=== PATIENT | female | born 1965 | race Hispanic/Latino ===

== ENCOUNTER 2024-04-15 07:50 | Emergency (ER) | payer OTHER ==
[~2024-04-15] VITALS: Ht 157.5 cm; Wt 88.9 kg
[~2024-04-15 07:50] MED LIST: FERR-82 PO; FURO40TA5 PO; LACT10SO9 PO; PANT40TA54 PO
[2024-04-15 08:26] LABS: BASOPHILS # (AUTO) 0.04 K/uL (0.00-0.20); BASOPHILS % (AUTO) 1.2 % (0.0-5.0); EOSINOPHILS # (AUTO) 0.13 K/uL (0.00-0.70); EOSINOPHILS % (AUTO) 3.8 % (0.0-8.0); HEMATOCRIT 28.9 % (36-48); IMMATURE GRANULOCYTE ABSOLUTE 0.01 K/uL (0-1); LYMPHOCYTES # (AUTO) 1.1 K/uL (1.0-4.8); LYMPHOCYTES % (AUTO) 32.1 % (21.0-51.0); MEAN CORPUSCULAR HEMOGLOBIN 33.4 pg (27.0-33.0); MEAN CORPUSCULAR HGB CONC 34.9 g/dL (32.0-36.0); MEAN CORPUSCULAR VOLUME 95.7 fL (79-99); MONOCYTES # (AUTO) 0.4 K/uL (0.1-1.0); NEUTROPHILS # (AUTO) 1.7 K/uL (1.8-7.7); NEUTROPHILS % (AUTO) 50.6 % (40.0-77.0); PLATELET COUNT (AUTO) 108 K/uL (130-400); RED BLOOD CELL COUNT(AUTO) 3.02 MIL/uL (4.00-5.50); RED CELL DISTRIBUTION WIDTH 13.3 % (11.0-15.5); WHITE BLOOD COUNT (AUTO) 3.4 K/uL (4.8-10.8)
[2024-04-15 08:29] LABS: CREATININE 2.3 mg/dL (0.5-1.0); POTASSIUM 4.2 mmol/L (3.5-5.1)
[2024-04-15 08:32] LABS: INR 1.08 (0.85-1.15); PROTHROMBIN TIME 12.7 SEC (9.6-11.6)
[2024-04-15 08:34] LABS: PARTIAL THROMBOPLASTIN TIME 29.9 SEC (26.3-35.5)
[2024-04-15 08:35] LABS: ALBUMIN 2.5 g/dL (3.5-5.0); BILIRUBIN,TOTAL 1.3 mg/dL (0.2-1.0); TOTAL PROTEIN, SERUM 7.3 g/dL (6.0-8.3)
[2024-04-15 08:39] VITALS: RESP 14
[2024-04-15] MEDS ORDERED: ALBUMIN (HUMAN) 25% 200 ML IV ONE (09:16)
[2024-04-15 09:57] VITALS: BP 117/61; PULSE 77; O2SAT 100
== END 2024-04-15 10:40 | disposition home or self-care (01) ==
LOC: EDH 07:50
DX: R18.8 Other ascites (principal); K74.60 Unspecified cirrhosis of liver; D61.818 Other pancytopenia; I10 Essential (primary) hypertension; Z79.899 Other long term (current) drug therapy; Z90.710 Acquired absence of both cervix and uterus; Z98.890 Other specified postprocedural states
CPT/HCPCS: 49083; 99285; 96365; 80053; 85025; 85610; 85730; 36415; P9046; C1729

== ENCOUNTER 2024-04-26 08:10 | Emergency (ER) | payer MEDICAID, OTHER ==
[~2024-04-26] VITALS: Ht 167.6 cm; Wt 86.6 kg
[2024-04-26 08:11] VITALS: TEMP 97.8
[2024-04-26 08:53] LABS: BASOPHILS # (AUTO) 0.04 K/uL (0.00-0.20); BASOPHILS % (AUTO) 0.9 % (0.0-5.0); EOSINOPHILS # (AUTO) 0.15 K/uL (0.00-0.70); EOSINOPHILS % (AUTO) 3.4 % (0.0-8.0); HEMATOCRIT 28.1 % (36-48); IMMATURE GRANULOCYTE ABSOLUTE 0.01 K/uL (0-1); LYMPHOCYTES # (AUTO) 1.5 K/uL (1.0-4.8); LYMPHOCYTES % (AUTO) 33.1 % (21.0-51.0); MEAN CORPUSCULAR HEMOGLOBIN 33.7 pg (27.0-33.0); MEAN CORPUSCULAR HGB CONC 35.9 g/dL (32.0-36.0); MEAN CORPUSCULAR VOLUME 93.7 fL (79-99); MONOCYTES # (AUTO) 0.5 K/uL (0.1-1.0); MONOCYTES % (AUTO) 10.8 % (3.0-13.0); NEUTROPHILS # (AUTO) 2.3 K/uL (1.8-7.7); NEUTROPHILS % (AUTO) 51.6 % (40.0-77.0); PLATELET COUNT (AUTO) 107 K/uL (130-400); RED CELL DISTRIBUTION WIDTH 13.6 % (11.0-15.5); WHITE BLOOD COUNT (AUTO) 4.4 K/uL (4.8-10.8)
[2024-04-26 09:08] LABS: CREATININE 2.3 mg/dL (0.5-1.0); POTASSIUM 3.9 mmol/L (3.5-5.1)
[2024-04-26 09:18] LABS: INR 1.06 (0.85-1.15); PROTHROMBIN TIME 12.4 SEC (9.6-11.6)
[2024-04-26 09:19] LABS: PARTIAL THROMBOPLASTIN TIME 29.1 SEC (26.3-35.5)
[2024-04-26] MEDS: SODIUM BICARB 50MEQ 50ML VIAL 50 ML ONE (10:33)
[2024-04-26] MEDS: ALBUMIN (HUMAN) 25% 200 ML IV ONE (10:34)
[2024-04-26 11:09] VITALS: BP 117/55; PULSE 75; RESP 16; O2SAT 100
== END 2024-04-26 13:45 | disposition home or self-care (01) ==
LOC: EDH 08:10
DX: R18.8 Other ascites (principal); K74.60 Unspecified cirrhosis of liver; I10 Essential (primary) hypertension; Z79.899 Other long term (current) drug therapy; Z90.710 Acquired absence of both cervix and uterus
CPT/HCPCS: 49083; 99285; 96365; 80048; 85025; 85610; 85730; 36415; P9046; J3490; C1729

== ENCOUNTER 2024-05-21 07:14 | Emergency (ER) | payer BC, MEDICAID ==
[~2024-05-21] VITALS: Ht 165.1 cm; Wt 89.4 kg
[2024-05-21 08:16] LABS: BASOPHILS # (AUTO) 0.05 K/uL (0.00-0.20); BASOPHILS % (AUTO) 1.2 % (0.0-5.0); EOSINOPHILS # (AUTO) 0.31 K/uL (0.00-0.70); EOSINOPHILS % (AUTO) 7.3 % (0.0-8.0); HEMATOCRIT 27.3 % (36-48); IMMATURE GRANULOCYTE ABSOLUTE 0.01 K/uL (0-1); LYMPHOCYTES # (AUTO) 1.2 K/uL (1.0-4.8); LYMPHOCYTES % (AUTO) 29.3 % (21.0-51.0); MEAN CORPUSCULAR HEMOGLOBIN 32.1 pg (27.0-33.0); MEAN CORPUSCULAR HGB CONC 34.1 g/dL (32.0-36.0); MEAN CORPUSCULAR VOLUME 94.1 fL (79-99); MONOCYTES # (AUTO) 0.5 K/uL (0.1-1.0); MONOCYTES % (AUTO) 12.3 % (3.0-13.0); NEUTROPHILS # (AUTO) 2.1 K/uL (1.8-7.7); NEUTROPHILS % (AUTO) 49.7 % (40.0-77.0); PLATELET COUNT (AUTO) 96 K/uL (130-400); RED CELL DISTRIBUTION WIDTH 13.4 % (11.0-15.5); WHITE BLOOD COUNT (AUTO) 4.2 K/uL (4.8-10.8)
[2024-05-21 08:23] LABS: INR 1.13 (0.85-1.15); PROTHROMBIN TIME 12.1 SEC (9.6-11.6)
[2024-05-21 08:24] LABS: PARTIAL THROMBOPLASTIN TIME 28.8 SEC (26.3-35.5)
[2024-05-21 08:25] LABS: BILIRUBIN,TOTAL 0.9 mg/dL (0.2-1.0); POTASSIUM 5.3 mmol/L (3.5-5.1); TOTAL PROTEIN, SERUM 6.3 g/dL (6.0-8.3)
[2024-05-21] MEDS ORDERED: ALBUMIN (HUMAN) 25% 200 ML IV ONE (11:32)
[2024-05-21 13:32] VITALS: BP 95/52; PULSE 73; RESP 18; O2SAT 100
== END 2024-05-21 14:04 | disposition home or self-care (01) ==
LOC: EDH 07:14
DX: R18.8 Other ascites (principal); K74.60 Unspecified cirrhosis of liver; Z79.899 Other long term (current) drug therapy; Z90.710 Acquired absence of both cervix and uterus; Z98.890 Other specified postprocedural states
CPT/HCPCS: 49083; 99285; 96365; 80053; 85025; 85610; 85730; 36415; P9046; C1729

== ENCOUNTER 2024-06-09 08:28 | Inpatient (IN) | payer BC ==
[~2024-06-09] VITALS: Ht 162.6 cm; Wt 79.4 kg
[2024-06-09 09:00] LABS: BASOPHILS # (AUTO) 0.06 K/uL (0.00-0.20); BASOPHILS % (AUTO) 1.4 % (0.0-5.0); EOSINOPHILS % (AUTO) 7.1 % (0.0-8.0); HEMATOCRIT 28.1 % (36-48); IMMATURE GRANULOCYTE ABSOLUTE 0.01 K/uL (0-1); LYMPHOCYTES # (AUTO) 1.4 K/uL (1.0-4.8); LYMPHOCYTES % (AUTO) 32.9 % (21.0-51.0); MEAN CORPUSCULAR HEMOGLOBIN 32.4 pg (27.0-33.0); MEAN CORPUSCULAR HGB CONC 34.2 g/dL (32.0-36.0); MEAN CORPUSCULAR VOLUME 94.9 fL (79-99); MONOCYTES # (AUTO) 0.4 K/uL (0.1-1.0); MONOCYTES % (AUTO) 9.9 % (3.0-13.0); NEUTROPHILS # (AUTO) 2.1 K/uL (1.8-7.7); NEUTROPHILS % (AUTO) 48.5 % (40.0-77.0); PLATELET COUNT (AUTO) 111 K/uL (130-400); RED BLOOD CELL COUNT(AUTO) 2.96 MIL/uL (4.00-5.50); RED CELL DISTRIBUTION WIDTH 13.7 % (11.0-15.5); WHITE BLOOD COUNT (AUTO) 4.3 K/uL (4.8-10.8)
[2024-06-09 09:08] LABS: INR 1.13 (0.85-1.15); PROTHROMBIN TIME 12.1 SEC (9.6-11.6)
[2024-06-09 09:10] LABS: PARTIAL THROMBOPLASTIN TIME 28.8 SEC (26.3-35.5)
[2024-06-09 09:14] LABS: BILIRUBIN,TOTAL 1.1 mg/dL (0.2-1.0); CREATININE 2.3 mg/dL (0.5-1.0); POTASSIUM 5.3 mmol/L (3.5-5.1); TOTAL PROTEIN, SERUM 6.2 g/dL (6.0-8.3)
[2024-06-09 10:09] LABS: APPEARANCE,URINE CLEAR (CLEAR); BILIRUBIN,URINE NEGATIVE (NEGATIVE); COLOR,URINE YELLOW (YELLOW); GLUCOSE, URINE (UA) NEGATIVE (NEGATIVE); KETONES,URINE NEGATIVE (NEGATIVE); LEUKOCYTE ESTERASE ,URINE NEGATIVE Leu/uL (NEGATIVE); MUCUS,URINE RARE LPF (None Seen); NITRATE,URINE NEGATIVE (NEGATIVE); OCCULT BLOOD,URINE NEGATIVE (NEGATIVE); PH,URINE 5.5 (5.0-8.0); PROTEIN,URINE 10 mg/dL (NEGATIVE); SQUAMOUS EPITHELIAL CELL,UR MOD /HPF (0-2)
[2024-06-09 10:22] LABS: BACTERIA,URINE RARE /HPF (None Seen)
[2024-06-09] MEDS: LACTULOSE 20 GM/30 ML UDCUP PO ONE (10:35)
[2024-06-09] MEDS: NA ZIRCON CYCLOSIL(LOKELMA 10GM) PO ONE (10:35)
[2024-06-09] MEDS ORDERED: ACETAMINOPHEN 500 MG TABLET PO PRN (11:00)
[2024-06-09] MEDS ORDERED: ONDANSETRON 4MG INJ IVP PRN (11:00)
[2024-06-09 14:03] LABS: ALBUMIN,BODY FLUID < 0.6 g/dL; BODY FLUID RBC 70 /cu. mm.; BODY FLUID WBC 308 /cu. mm.; TOTAL PROTEIN,BODY FLUID < 2.0 g/dL
[2024-06-09 14:20] LABS: APPEARANCE BODY FLUID CLEAR (CLEAR); COLOR,BODY FLUID YELLOW (LT YELLOW); SPECIMENTYPE,BODY FLUID ASCITES; TOTAL VOLUME,BODY FLUID 15000 mL
[2024-06-09 14:53] LABS: BF EOSINOPHIL 1 %; BF LYMPHOCYTE 20 %; BF MONOCYTE 75 %; BF OTHER CELLS 2; BF TOTAL CELLS COUNTED 100
[2024-06-09] MEDS: PANTOPRAZOLE 40 MG TAB DR PO SCH (16:27)
[2024-06-09] MEDS: ALBUMIN (HUMAN) 25% 100 ML IV SCH ×2 (16:59→18:18)
[2024-06-09 17:14] LABS: CHLORIDE,URINE RANDOM 44 mmol/L (110-250); CREATININE,URINE RANDOM 162.48 mg/dL (30-135); POTASSIUM,URINE RANDOM 103 mmol/L (25-125); SODIUM,URINE RANDOM < 13 mmol/l (40-220)
[2024-06-09] MEDS: OCTREOTIDE ACETATE 100 MCG/ML AMP SQ SCH (18:23)
[2024-06-09] MEDS ORDERED: 0.9% NACL 250ML 250 ML IV SCH (18:30)
[2024-06-09] MEDS ORDERED: MIDODRINE HCL 5 MG TABLET PO PRN (18:30)
[2024-06-09 19:37] LABS: BASOPHILS # (AUTO) 0.03 K/uL (0.00-0.20); BASOPHILS % (AUTO) 1.2 % (0.0-5.0); EOSINOPHILS # (AUTO) 0.12 K/uL (0.00-0.70); EOSINOPHILS % (AUTO) 4.9 % (0.0-8.0); HEMATOCRIT 22.5 % (36-48); LYMPHOCYTES # (AUTO) 0.8 K/uL (1.0-4.8); LYMPHOCYTES % (AUTO) 33.2 % (21.0-51.0); MEAN CORPUSCULAR HEMOGLOBIN 32.5 pg (27.0-33.0); MEAN CORPUSCULAR HGB CONC 34.7 g/dL (32.0-36.0); MEAN CORPUSCULAR VOLUME 93.8 fL (79-99); MONOCYTES # (AUTO) 0.4 K/uL (0.1-1.0); MONOCYTES % (AUTO) 14.6 % (3.0-13.0); NEUTROPHILS # (AUTO) 1.1 K/uL (1.8-7.7); NEUTROPHILS % (AUTO) 46.1 % (40.0-77.0); PLATELET COUNT (AUTO) 78 K/uL (130-400); RED CELL DISTRIBUTION WIDTH 13.5 % (11.0-15.5); WHITE BLOOD COUNT (AUTO) 2.5 K/uL (4.8-10.8)
[2024-06-09 19:47] LABS: CREATININE 2.1 mg/dL (0.5-1.0)
[2024-06-09 19:51] LABS: ALBUMIN 2.9 g/dL (3.5-5.0); BILIRUBIN,TOTAL 1.1 mg/dL (0.2-1.0); MAGNESIUM 2.5 mg/dL (1.80-2.40); TOTAL PROTEIN, SERUM 5.7 g/dL (6.0-8.3)
[2024-06-09 20:59] LABS: BAND NEUTROPHILS % (MANUAL) 4 % (0-2); EOSINOPHILS % (MANUAL) 1 % (1-6); LYMPHOCYTES % (MANUAL) 44 % (22-44); MAN.DIFF COMMENT-IMPRESSION MANUAL DIFFERENTIAL; MONOCYTES % (MANUAL) 10 % (2-9); SEGMENTED NEUTROPHILS % 41 % (40-70); TOTAL CELLS COUNTED 100
[2024-06-09 21:00] LABS: PLATELET MORPHOLOGY COMMENT DECREASED
[2024-06-09] MEDS: LACTULOSE 20 GM/30 ML UDCUP PO SCH (21:12)
[2024-06-09 22:07] VITALS: BP 112/54; PULSE 67; RESP 18
[2024-06-09 22:45] VITALS: O2SAT 100
[2024-06-09 22:56] LABS: HEMATOCRIT 24.1 % (36-48)
[2024-06-10] VITALS: BP 103/49; PULSE 76; RESP 18
[2024-06-10 04:00] VITALS: BP_SYST 102; BP_SYST 140; BP_DIAS 50; BP_DIAS 61; PULSE 71; PULSE 76; RESP 17; RESP 18
[2024-06-10 05:34] LABS: BASOPHILS # (AUTO) 0.02 K/uL (0.00-0.20); BASOPHILS % (AUTO) 0.9 % (0.0-5.0); EOSINOPHILS # (AUTO) 0.12 K/uL (0.00-0.70); EOSINOPHILS % (AUTO) 5.5 % (0.0-8.0); HEMATOCRIT 23.3 % (36-48); LYMPHOCYTES # (AUTO) 0.7 K/uL (1.0-4.8); LYMPHOCYTES % (AUTO) 30.9 % (21.0-51.0); MEAN CORPUSCULAR HEMOGLOBIN 32.1 pg (27.0-33.0); MEAN CORPUSCULAR HGB CONC 33.5 g/dL (32.0-36.0); MEAN CORPUSCULAR VOLUME 95.9 fL (79-99); MONOCYTES # (AUTO) 0.3 K/uL (0.1-1.0); MONOCYTES % (AUTO) 14.7 % (3.0-13.0); PLATELET COUNT (AUTO) 69 K/uL (130-400); RED BLOOD CELL COUNT(AUTO) 2.43 MIL/uL (4.00-5.50); RED CELL DISTRIBUTION WIDTH 13.2 % (11.0-15.5); WHITE BLOOD COUNT (AUTO) 2.2 K/uL (4.8-10.8)
[2024-06-10 05:57] LABS: BILIRUBIN,TOTAL 1.3 mg/dL (0.2-1.0); CREATININE 2.1 mg/dL (0.5-1.0); MAGNESIUM 2.4 mg/dL (1.80-2.40); PHOSPHORUS 3.9 mg/dL (2.5-4.9); POTASSIUM 5.9 mmol/L (3.5-5.1); TOTAL PROTEIN, SERUM 5.3 g/dL (6.0-8.3); URIC ACID 8.3 mg/dL (2.6-7.2)
[2024-06-10 08:00] VITALS: BP 102/46; PULSE 75; RESP 18; O2SAT 100
[2024-06-10 09:14] LABS: CREATININE 2.1 mg/dL (0.5-1.0); POTASSIUM 5.3 mmol/L (3.5-5.1)
[2024-06-10] MEDS: NA ZIRCON CYCLOSIL(LOKELMA 10GM) PO ONE (10:55)
[2024-06-10] MEDS: Vitamin B Complex/Vit C/Folic Acid PO SCH (10:57)
[2024-06-10 11:50] VITALS: BP 103/52; PULSE 73; RESP 18
[2024-06-10] MEDS ORDERED: LACE ASSESSMENT (SCORE > 11) MISC SCH (15:00)
[2024-06-10 16:00] VITALS: BP 93/52; PULSE 72; RESP 18
[2024-06-10 20:00] VITALS: BP 102/50; PULSE 72; RESP 18; O2SAT 100
[2024-06-11] VITALS (7 sets, daily range): BP systolic 97–125; BP diastolic 52–65; PULSE 65–73; RESP 16–20; O2SAT 99
[2024-06-11 05:56] LABS: HEMATOCRIT 23.3 % (36-48); MEAN CORPUSCULAR HEMOGLOBIN 32.5 pg (27.0-33.0); MEAN CORPUSCULAR HGB CONC 34.3 g/dL (32.0-36.0); MEAN CORPUSCULAR VOLUME 94.7 fL (79-99); PLATELET COUNT (AUTO) 81 K/uL (130-400); RED BLOOD CELL COUNT(AUTO) 2.46 MIL/uL (4.00-5.50); RED CELL DISTRIBUTION WIDTH 13.3 % (11.0-15.5); WHITE BLOOD COUNT (AUTO) 2.6 K/uL (4.8-10.8)
[2024-06-11 06:12] LABS: CREATININE 2.1 mg/dL (0.5-1.0); POTASSIUM 5.2 mmol/L (3.5-5.1)
[2024-06-11 06:31] LABS: BAND NEUTROPHILS % (MANUAL) 6 % (0-2); BASOPHILS % (MANUAL) 1 % (0-2); EOSINOPHILS % (MANUAL) 3 % (1-6); LYMPHOCYTES % (MANUAL) 30 % (22-44); MAN.DIFF COMMENT-IMPRESSION MANUAL DIFFERENTIAL; MONOCYTES % (MANUAL) 13 % (2-9); PLATELET MORPHOLOGY COMMENT DECREASED; REACTIVE LYMPHOCYTES 3 % (0-0); SEGMENTED NEUTROPHILS % 44 % (40-70); TOTAL CELLS COUNTED 100; WBC MORPHOLOGY REACTIVE LYMPHS 1+
[2024-06-11] MEDS: RIFAXIMIN 550 MG TABLET PO SCH (09:24)
[2024-06-11] MEDS: LACTULOSE 20 GM/30 ML UDCUP PO SCH (09:24)
[2024-06-12] VITALS (9 sets, daily range): BP systolic 94–138; BP diastolic 53–68; PULSE 58–85; RESP 16–21; O2SAT 100
[2024-06-12 05:22] LABS: HEMATOCRIT 26.2 % (36-48); MEAN CORPUSCULAR HGB CONC 34.4 g/dL (32.0-36.0); RED BLOOD CELL COUNT(AUTO) 2.73 MIL/uL (4.00-5.50); RED CELL DISTRIBUTION WIDTH 13.4 % (11.0-15.5); WHITE BLOOD COUNT (AUTO) 3.5 K/uL (4.8-10.8)
[2024-06-12 05:35] LABS: ALBUMIN 2.5 g/dL (3.5-5.0); BILIRUBIN,TOTAL 0.7 mg/dL (0.2-1.0); POTASSIUM 5.1 mmol/L (3.5-5.1)
[2024-06-12] MEDS: MIDODRINE HCL 5 MG TABLET PO SCH (21:37)
[2024-06-13] VITALS (8 sets, daily range): BP systolic 104–120; BP diastolic 55–66; PULSE 67–75; RESP 16–19; O2SAT 98–100
[2024-06-13 05:29] LABS: HEMATOCRIT 25.2 % (36-48); MEAN CORPUSCULAR HEMOGLOBIN 32.5 pg (27.0-33.0); MEAN CORPUSCULAR HGB CONC 34.5 g/dL (32.0-36.0); RED BLOOD CELL COUNT(AUTO) 2.68 MIL/uL (4.00-5.50); RED CELL DISTRIBUTION WIDTH 13.3 % (11.0-15.5); WHITE BLOOD COUNT (AUTO) 4.2 K/uL (4.8-10.8)
[2024-06-13 05:52] LABS: CREATININE 1.9 mg/dL (0.5-1.0); POTASSIUM 4.9 mmol/L (3.5-5.1)
[2024-06-14] VITALS (14 sets, daily range): BP systolic 84–143; BP diastolic 45–67; PULSE 59–81; RESP 17–18; O2SAT 96–100
[2024-06-14 06:16] LABS: HEMATOCRIT 24.9 % (36-48); MEAN CORPUSCULAR HEMOGLOBIN 32.7 pg (27.0-33.0); MEAN CORPUSCULAR HGB CONC 35.3 g/dL (32.0-36.0); MEAN CORPUSCULAR VOLUME 92.6 fL (79-99); RED BLOOD CELL COUNT(AUTO) 2.69 MIL/uL (4.00-5.50); RED CELL DISTRIBUTION WIDTH 13.5 % (11.0-15.5); WHITE BLOOD COUNT (AUTO) 4.6 K/uL (4.8-10.8)
[2024-06-14 06:29] LABS: ALBUMIN 2.3 g/dL (3.5-5.0); BILIRUBIN,TOTAL 0.7 mg/dL (0.2-1.0); POTASSIUM 4.5 mmol/L (3.5-5.1)
[2024-06-14] MEDS ORDERED: ALBUMIN (HUMAN) 25% 100 ML IV PRN (09:00)
[2024-06-14] MEDS ORDERED: ALBUMIN (HUMAN) 25% 100 ML IV ONE (10:12)
[2024-06-14] MEDS: LACTULOSE 20 GM/30 ML UDCUP PO SCH (21:35)
[2024-06-15] VITALS (8 sets, daily range): BP systolic 87–102; BP diastolic 48–60; PULSE 62–72; RESP 16–18; O2SAT 100
[2024-06-15 03:46] LABS: BASOPHILS # (AUTO) 0.04 K/uL (0.00-0.20); BASOPHILS % (AUTO) 1.2 % (0.0-5.0); EOSINOPHILS # (AUTO) 0.21 K/uL (0.00-0.70); EOSINOPHILS % (AUTO) 6.4 % (0.0-8.0); HEMATOCRIT 24.5 % (36-48); IMMATURE GRANULOCYTE ABSOLUTE 0.01 K/uL (0-1); LYMPHOCYTES # (AUTO) 1.1 K/uL (1.0-4.8); LYMPHOCYTES % (AUTO) 32.3 % (21.0-51.0); MEAN CORPUSCULAR HEMOGLOBIN 32.8 pg (27.0-33.0); MEAN CORPUSCULAR HGB CONC 33.9 g/dL (32.0-36.0); MEAN CORPUSCULAR VOLUME 96.8 fL (79-99); MONOCYTES # (AUTO) 0.3 K/uL (0.1-1.0); MONOCYTES % (AUTO) 9.8 % (3.0-13.0); NEUTROPHILS # (AUTO) 1.6 K/uL (1.8-7.7); PLATELET COUNT (AUTO) 84 K/uL (130-400); RED BLOOD CELL COUNT(AUTO) 2.53 MIL/uL (4.00-5.50); RED CELL DISTRIBUTION WIDTH 13.3 % (11.0-15.5); WHITE BLOOD COUNT (AUTO) 3.3 K/uL (4.8-10.8)
[2024-06-15 04:13] LABS: ALBUMIN 2.4 g/dL (3.5-5.0); BILIRUBIN,TOTAL 1.2 mg/dL (0.2-1.0); CREATININE 1.9 mg/dL (0.5-1.0); MAGNESIUM 2.3 mg/dL (1.80-2.40); POTASSIUM 4.6 mmol/L (3.5-5.1); TOTAL PROTEIN, SERUM 4.9 g/dL (6.0-8.3)
[2024-06-15] MEDS ORDERED: PANTOPRAZOLE 40 MG TAB DR PO SCH (09:00)
[2024-06-15] MEDS: ALBUMIN (HUMAN) 25% 50 ML IV SCH (12:55)
[2024-06-16 05:34] VITALS: BP_SYST 109; BP_SYST 89; BP_DIAS 43; BP_DIAS 53; PULSE 63; RESP 17
[2024-06-16 06:30] LABS: BASOPHILS # (AUTO) 0.06 K/uL (0.00-0.20); BASOPHILS % (AUTO) 1.6 % (0.0-5.0); EOSINOPHILS # (AUTO) 0.32 K/uL (0.00-0.70); EOSINOPHILS % (AUTO) 8.4 % (0.0-8.0); LYMPHOCYTES # (AUTO) 1.3 K/uL (1.0-4.8); MEAN CORPUSCULAR HEMOGLOBIN 32.8 pg (27.0-33.0); MEAN CORPUSCULAR HGB CONC 34.2 g/dL (32.0-36.0); MEAN CORPUSCULAR VOLUME 95.9 fL (79-99); MONOCYTES # (AUTO) 0.4 K/uL (0.1-1.0); MONOCYTES % (AUTO) 9.4 % (3.0-13.0); NEUTROPHILS # (AUTO) 1.8 K/uL (1.8-7.7); NEUTROPHILS % (AUTO) 45.6 % (40.0-77.0); PLATELET COUNT (AUTO) 87 K/uL (130-400); RED BLOOD CELL COUNT(AUTO) 2.71 MIL/uL (4.00-5.50); RED CELL DISTRIBUTION WIDTH 13.3 % (11.0-15.5); WHITE BLOOD COUNT (AUTO) 3.8 K/uL (4.8-10.8)
[2024-06-16 06:43] LABS: ALBUMIN 2.3 g/dL (3.5-5.0); CREATININE 2.2 mg/dL (0.5-1.0); MAGNESIUM 2.3 mg/dL (1.80-2.40)
[2024-06-16 07:50] VITALS: O2SAT 100
[2024-06-16 08:00] VITALS: BP 92/55; PULSE 60; RESP 18
[2024-06-16] MEDS: FERROUS SULFATE 325 MG TABLET.DR PO SCH (09:01)
[2024-06-16 12:00] VITALS: BP 108/63; PULSE 63; RESP 19
[2024-06-16] MEDS ORDERED: PANT40TA PO (12:21)
[2024-06-16] MEDS ORDERED: RIFA550T PO (12:22)
== END 2024-06-16 16:30 | disposition home or self-care (01) | DRG 433 ==
LOC: EDH 08:28 → EDHIP 10:35 → 3AH 21:53
PROVIDERS: ADMIT Internal Medicine; ATTEND Internal Medicine
PROC: 0W9G3ZZ Drainage of Peritoneal Cavity, Percutaneous Approach (ICD-10-PCS; principal; 2024-06-09)
PROC: 0W9G3ZZ Drainage of Peritoneal Cavity, Percutaneous Approach (ICD-10-PCS; 2024-06-14)
DX: K74.60 Unspecified cirrhosis of liver (principal); B18.9 Chronic viral hepatitis, unspecified; N17.9 Acute kidney failure, unspecified; R18.8 Other ascites; E72.20 Disorder of urea cycle metabolism, unspecified; E87.5 Hyperkalemia; N18.9 Chronic kidney disease, unspecified; I95.9 Hypotension, unspecified; D64.9 Anemia, unspecified; E87.6 Hypokalemia; D69.6 Thrombocytopenia, unspecified; E87.8 Other disorders of electrolyte and fluid balance, not elsewhere classified; Z90.710 Acquired absence of both cervix and uterus; Z79.899 Other long term (current) drug therapy
CPT/HCPCS: 36415; 49083; 76376; 76705; 76770; 80048; 80051; 80053; 81001; 82042; 82140; 82570; 83605; 83690; 83735; 83880; 83935; 84100; 84157; 84484; 84550; 85014; 85018; 85025; 85027; 85610; 85730; 86850; 86900; 86901; 87071; 87205; 89051; 93005; 93306; 93356; 96365; 99291; C1729; G0378; J2354; P9046; P9047